=== PATIENT | female | born 1975 | race Caucasian/White ===

== ENCOUNTER 2017-09-04 08:59 | Outpatient (CLI) | payer BC | END 2017-09-04 09:00 | disposition home or self-care (01) | LOC: BICMAMMO 08:59 | PROVIDERS: ATTEND Obstetrics & Gynecology | DX: R92.8 Other abnormal and inconclusive findings on diagnostic imaging of breast (principal) | CPT/HCPCS: G0279 ==

== ENCOUNTER 2018-01-25 10:06 | Outpatient (CLI) | payer BC | END 2018-01-25 10:07 | disposition home or self-care (01) | LOC: BICRAD 10:06 | PROVIDERS: ATTEND Internal Medicine | DX: M79.674 Pain in right toe(s) (principal) ==

== ENCOUNTER 2019-04-29 14:27 | Outpatient (CLI) | payer BC ==
--- NOTE | 2019-04-29 15:22 | MMO ---
Bilateral MAMMO Bilat Screen [facility]. CLINICAL HISTORY: Patient is 43 years old and is seen for screening. The patient has no family history of breast cancer. The patient has no personal history of cancer. VIEWS: The views performed were: bilateral craniocaudal with tomosynthesis and bilateral mediolateral oblique with tomosynthesis. FILMS COMPARED: The present examination has been compared to prior imaging studies performed at [facility] on 03/24/2015, 04/20/2016, 08/21/2017 and 09/04/2017. MAMMOGRAM FINDINGS: There are scattered fibroglandular densities. There are no suspicious masses, suspicious calcifications, or new areas of architectural distortion. IMPRESSION: THERE IS NO MAMMOGRAPHIC EVIDENCE OF MALIGNANCY. A ROUTINE FOLLOW-UP MAMMOGRAM IN 1 YEAR IS RECOMMENDED. THE RESULTS OF THIS EXAM WERE SENT TO THE PATIENT. ACR BI-RADS Category 1 - Negative MAMMOGRAPHY NOTE: 1. A negative mammogram report should not delay a biopsy if a dominant of clinically suspicious mass is present. 2. Approximately 10% to 15% of breast cancers are not detected by mammography. 3. Adenosis and dense breasts may obscure an underlying neoplasm. Reported by: DOM TANNER MD Electonically Signed: [id number]
== END 2019-04-29 14:28 | disposition home or self-care (01) ==
LOC: BICMAMMO 14:27
PROVIDERS: ATTEND Obstetrics & Gynecology
DX: Z12.31 Encounter for screening mammogram for malignant neoplasm of breast (principal)
CPT/HCPCS: 77063; 77067

== ENCOUNTER 2019-07-01 10:29 | Outpatient (CLI) | payer BC ==
--- NOTE | 2019-07-01 11:03 | RAD ---
Right foot 3 views HISTORY: Right foot pain. FINDINGS: Lisfranc joint alignment is anatomic. Plantar arch is maintained. Joint space narrowing, wilson bchondral sclerosis, and mild osteophytosis at the first metatarsophalangeal joint. Enthesophyte at the plantar origin inferior aspect of the calcaneus. Mild degenerative changes of the ankle and hindfoot. IMPRESSION: Osteoarthritis first metatarsophalangeal joint. Plantar heel spur.
--- NOTE | 2019-07-01 12:26 | RAD ---
TOES RIGHT FOOT 3 VIEWS: Date: 07/01/19 HISTORY: Pain. FINDINGS: Phalanges appear unremarkable. There are mild degenerative changes at the first MTP joint with minima l spurring. The other MTP joints are unremarkable. The IP joints are unremarkable. IMPRESSION: No acute abnormality. POS: [facility]
== END 2019-07-01 10:30 | disposition home or self-care (01) ==
LOC: BICRAD 10:29
PROVIDERS: ATTEND Internal Medicine
DX: M79.671 Pain in right foot (principal); M19.071 Primary osteoarthritis, right ankle and foot; M77.31 Calcaneal spur, right foot
CPT/HCPCS: 36415; 80053; 80061; 85025

== ENCOUNTER 2020-07-16 13:39 | Outpatient (CLI) | payer BC ==
--- NOTE | 2020-07-16 14:11 | MMO ---
Bilateral MAMMO Bilat Screen [facility]. CLINICAL HISTORY: Patient is 44 years old and is seen for screening. The patient has no family history of breast cancer. The patient has no personal history of cancer. VIEWS: The views performed were: bilateral craniocaudal with tomosynthesis and bilateral mediolateral oblique with tomosynthesis. FILMS COMPARED: The present examination has been compared to prior imaging studies performed at [facility] on 04/20/2016, 08/21/2017, 09/04/2017 and 04/29/2019. This study has been interpreted with the assistance of computer-aided detection. MAMMOGRAM FINDINGS: There are scattered fibroglandular densities. There is an asymmetry seen in the CC view only seen in the posterior outer region of the right breast. In the left breast, there are no suspicious masses, calcifications or areas of architectural distortion. IMPRESSION: ASYMMETRY IN THE RIGHT BREAST REQUIRES ADDITIONAL EVALUATION. RECOMMEND DIAGNOSTIC MAMMOGRAM. ULTRASOUND MAY ALSO PROVE USEFUL AT RECALL. THE RESULTS OF THIS EXAM WERE SENT TO THE PATIENT. ACR BI-RADS Category 0 - Incomplete: Need additional imaging evaluation. [facility] will notify the patient of the need for additional imaging services. MAMMOGRAPHY NOTE: 1. A negative mammogram report should not delay a biopsy if a dominant of clinically suspicious mass is present. 2. Approximately 10% to 15% of breast cancers are not detected by mammography. 3. Adenosis and dense breasts may obscure an underlying neoplasm. Reported by: PEYMAN SALCEDO MD Electonically Signed: [id number]
== END 2020-07-16 13:40 | disposition home or self-care (01) ==
LOC: BICMAMMO 13:39
PROVIDERS: ATTEND Obstetrics & Gynecology
DX: Z12.31 Encounter for screening mammogram for malignant neoplasm of breast (principal); N64.89 Other specified disorders of breast
CPT/HCPCS: 77063; 77067

== ENCOUNTER 2020-07-27 14:20 | Outpatient (CLI) | payer BC ==
--- NOTE | 2020-07-27 15:02 | ULT ---
EXAM: US Breast Limited Rt PROVIDED CLINICAL HISTORY: Abnormal mammogram COMPARISON: Diagnostic mammogram 07/27/2020 FINDINGS: Limited sonographic interrogation was performed of the right breast in the region of mammographic con cern. The sonographic appearance of the breast parenchyma in this region is normal. IMPRESSION: No concerning sonographic findings are evident. BI-RADS 2 -- benign findings
--- NOTE | 2020-07-27 15:02 | MMO ---
Right Breast MAMMO Unilat Diag [facility]. CLINICAL HISTORY: Patient is 44 years old and is seen for diagnostic exam. The patient has no family history of breast cancer. The patient has no personal history of cancer. VIEWS: The views performed were: right craniocaudal with tomosynthesis; right mediolateral oblique with tomosynthesis; and right mediolateral with tomosynthesis. FILMS COMPARED: The present examination has been compared to prior imaging studies performed at [facility] on 09/04/2017, 04/29/2019, 07/16/2020 and 07/27/2020. This study has been interpreted with the assistance of computer-aided detection. MAMMOGRAM FINDINGS: There are scattered fibroglandular densities. There is a focal asymmetry seen in the outer region of the right breast. This appears similar to prior studies at additional imaging. No concerning sonographic findings are evident. There are no suspicious masses, suspicious calcifications, or new areas of architectural distortion. IMPRESSION: THERE IS NO MAMMOGRAPHIC EVIDENCE OF MALIGNANCY. A ROUTINE FOLLOW-UP MAMMOGRAM IN 1 YEAR IS RECOMMENDED. THE RESULTS OF THIS EXAM WERE SENT TO THE PATIENT. ACR BI-RADS Category 2 - Benign finding MAMMOGRAPHY NOTE: 1. A negative mammogram report should not delay a biopsy if a dominant of clinically suspicious mass is present. 2. Approximately 10% to 15% of breast cancers are not detected by mammography. 3. Adenosis and dense breasts may obscure an underlying neoplasm. Reported by: PEYMAN SALCEDO MD Electonically Signed: [id number]
== END 2020-07-27 14:21 | disposition home or self-care (01) ==
LOC: BICMAMMO 14:20
PROVIDERS: ATTEND Obstetrics & Gynecology
DX: R92.8 Other abnormal and inconclusive findings on diagnostic imaging of breast (principal)
CPT/HCPCS: G0279

== ENCOUNTER 2021-08-16 07:46 | Outpatient (CLI) | payer BC | END 2021-08-16 07:47 | disposition home or self-care (01) | LOC: BICMAMMO 07:46 | PROVIDERS: ATTEND Internal Medicine | DX: Z12.31 Encounter for screening mammogram for malignant neoplasm of breast (principal) | CPT/HCPCS: 77063; 77067 ==

== ENCOUNTER 2022-08-17 07:57 | Outpatient (CLI) | payer BC | END 2022-08-17 07:58 | disposition home or self-care (01) | LOC: BICMAMMO 07:57 | PROVIDERS: ATTEND Internal Medicine | DX: Z12.31 Encounter for screening mammogram for malignant neoplasm of breast (principal) | CPT/HCPCS: 77063; 77067 ==

== ENCOUNTER 2023-04-21 10:13 | Outpatient (CLI) | payer BC ==
[2023-04-21] MEDS ORDERED: Iopamidol-370 76% 500 ML MDV (1 ML CHARGE) ONE (11:13)
== END 2023-04-21 10:14 | disposition home or self-care (01) ==
LOC: BICCT 10:13
PROVIDERS: ATTEND Internal Medicine
DX: J98.59 Other diseases of mediastinum, not elsewhere classified (principal); E27.9 Disorder of adrenal gland, unspecified
CPT/HCPCS: 71260; 82565

== ENCOUNTER 2023-05-12 15:29 | Outpatient (CLI) | payer BC ==
[~2023-05-12 15:29] MED LIST: Iopamidol 370 76% 100 ML VIAL ONE
== END 2023-05-12 15:30 | disposition home or self-care (01) ==
LOC: CT 15:29
PROVIDERS: ATTEND Internal Medicine
DX: E27.8 Other specified disorders of adrenal gland (principal); N83.201 Unspecified ovarian cyst, right side
CPT/HCPCS: 74178; Q9967

== ENCOUNTER 2023-07-31 12:28 | Outpatient (CLI) | payer BC | END 2023-07-31 12:29 | disposition home or self-care (01) | LOC: RAD 12:28 | PROVIDERS: ATTEND Internal Medicine Gastroenterology | DX: Q39.8 Other congenital malformations of esophagus (principal); Z12.11 Encounter for screening for malignant neoplasm of colon; R09.A2 Foreign body sensation, throat; K44.9 Diaphragmatic hernia without obstruction or gangrene | CPT/HCPCS: 74220 ==

== ENCOUNTER 2024-02-20 16:00 | Outpatient (CLI) | payer BC | END 2024-02-20 16:01 | disposition home or self-care (01) | LOC: SLEEPLAB 16:00 | PROVIDERS: ATTEND Internal Medicine | DX: G47.33 Obstructive sleep apnea (adult) (pediatric) (principal); R06.83 Snoring; I10 Essential (primary) hypertension; G47.00 Insomnia, unspecified | CPT/HCPCS: 95800 ==

== ENCOUNTER 2024-04-16 07:28 | Outpatient (CLI) | payer BC ==
[2024-04-16] MEDS ORDERED: Iopamidol 370 76% 100 ML VIAL ONE (14:59)
== END 2024-04-16 07:29 | disposition home or self-care (01) ==
LOC: BICCT 07:28
PROVIDERS: ATTEND Internal Medicine
DX: Q39.8 Other congenital malformations of esophagus (principal); K22.89 Other specified disease of esophagus
CPT/HCPCS: 71260; Q9967

== ENCOUNTER 2024-08-19 13:16 | Outpatient (CLI) | payer BC | END 2024-08-19 13:17 | disposition home or self-care (01) | LOC: BICRAD 13:16 | PROVIDERS: ATTEND Internal Medicine | DX: M25.561 Pain in right knee (principal) ==